=== PATIENT | female | born 1945 | race Caucasian/White ===

== ENCOUNTER 2016-05-13 13:43 | Inpatient (IN) | payer OTHER ==
[2016-05-13] MEDS ORDERED: DUONEB (A & A) INH ONE (15:13)
[2016-05-13] MEDS ORDERED: DUONEB (A & A) INH PRN (15:13)
[2016-05-13] MEDS ORDERED: SOLU-MEDROL IV ONE (15:15)
[2016-05-13] MEDS ORDERED: SODIUM CHLORIDE 0.9% INJ SCH (15:30)
[2016-05-13] MEDS ORDERED: NS 250 ML ONE (15:37)
--- NOTE | 2016-05-13 16:12 | EKG Report ---
Test Performed on : 05/13/2016 4:00:12 PM Test Reason : SOB Blood Pressure : / mmHG Vent. Rate : 087 BPM Atrial Rate : 087 BPM P-R Int : 146 ms QRS Dur : 068 ms QT Int : 358 ms P-R-T Axes : 068 -19 051 degrees QTc Int : 430 ms Normal sinus rhythm. Normal ECG When compared with ECG of 21-APR-2016 01:23, premature supraventricular complexes. are no longer present Confirmed by Paolo ROMANO, John Michelle ([id number]) on 05/13/2016 5:23:46 PM
--- NOTE | 2016-05-13 16:19 | Diag Imaging Result Document ---
PROCEDURE NAME: CHEST-2 VIEWS - 05/13/2016 FRONTAL AND LATERAL CHEST, TWO VIEWS: COMPARISON: 04/21/2016. FINDINGS: The lungs are well expanded. The heart is not enlarged. The vessels are not distended. No pneumonia. No pleural effusions. IMPRESSION: No acute abnormality.
[2016-05-13 16:25] LABS: AGAP 11; ALBUMIN 3.6 g/dL (3.5-5.0); ALKALINE PHOSPHATASE 64 U/L (32-104); BUN 20 mg/dL (8-22); CALCIUM 8.7 mg/dL (8.8-10.2); CHLORIDE 101 mmol/L (98-107); COSMO 275; GOT 15 U/L (10-30); GPT 9 U/L (10-36); POTASSIUM 4.4 mmol/L (3.5-5.1); SODIUM 136 mmol/L (136-145); TCO2 24 mmol/L (25-35); TOTAL BILIRUBIN < 0.10 mg/dL (0.20-1.00); TOTAL PROTEIN 6.7 g/dL (6.3-8.3)
[2016-05-13 16:28] LABS: ALLEN TEST NO; BE -1.7 mmoll (-3.0-3.0); BLOOD TYPE ARTERIAL; DRAW SITE R BRACHIAL; METHB 1.4 % (0.0-1.5); O2(CT) 14.5 mL/dL (15.0-23.0); PCO2(98.6) 42 mmHg (35-45); PO2(98.6) 103 mmHg (60-100); SAMPLE BLOOD; SAO2 97.8 % (95.0-100.0); THB 10.9 g/dL (11.5-17.4); pH(98.6) 7.36 (7.35-7.45)
[2016-05-13 16:29] LABS: MODALITY CANNULA
[2016-05-13] MEDS: PROTONIX IV SCH (16:30)
[2016-05-13 16:35] LABS: BASO% 0.2 % (0.0-0.8); EOS# 0.37 X1000 (0.0-0.7); EOS% 6.5 % (0.0-10.0); HEMATOCRIT 34.5 % (37.0-47.0); HEMOGLOBIN 10.9 g/dL (12.0-16.0); IMM GRAN# 0.02 X1000 (0.0-0.04); IMM GRAN% 0.4 % (0.0-0.5); LYMPH# 1.71 X1000 (1.2-3.4); LYMPH% 30.2 % (20.5-51.1); MANUAL DIFF NEEDED? YES; MCH 34.3 PG (27-31); MCHC 31.6 g/dL (33-37); MCV 108.5 FL (81-99); MONO# 0.44 X1000 (0.11-0.59); MONO% 7.8 % (1.7-9.3); MPV 9.5 FL (7.4-10.4); NEUT% 54.9 % (42.2-75.2); PLT 189 X1000 (130-400); RBC 3.18 XMIL (4.2-5.4)
[2016-05-13] MEDS ORDERED: ROCEPHIN 1 GM/NS 50 ML IV SCH (17:00)
[2016-05-13] MEDS ORDERED: SOLU-MEDROL IV SCH (17:00)
[2016-05-13] MEDS ORDERED: NORCO-7.5 PO ONE (17:01)
[2016-05-13 17:07] LABS: BANDS 2 % (0-1); EOS 4 % (1-10); LYMPHS 34 % (21-51); MONO 8 % (1-9)
[2016-05-13 17:08] LABS: POLYCHROM OCCASIONAL
[2016-05-13 17:09] LABS: STOMATOCYTES OCCASIONAL
[2016-05-13] MEDS: LEVAQUIN 500 MG/D5W 100 ML IV SCH (17:11)
[2016-05-13] MEDS: NS 1,000 ML IV SCH (17:11)
[2016-05-13] MEDS: LOVENOX SUBQ SCH (17:11)
--- NOTE | 2016-05-13 17:40 | HISTORY AND PHYSICAL ---
CHIEF COMPLAINT: Shortness of breath. A 70-year-old white female patient, known case of COPD, on home oxygen and nebulizer treatment not doing well since 1 week. Increasing cough, chest congestion, yellowish expectoration, feverish feeling, increasing shortness of breath, decreased exercise tolerance. The patient was getting short of breath walking across the room. She did have runny nose, stuffy nose, watery eyes. Feeling very weak and tired. The patient was using her nebulizer treatment without significant relief. I evaluated patient in my office. The patient was significantly short of breath in mild respiratory distress. Her blood pressure was elevated. Consideration was COPD exacerbation and I decided to admit the patient for further care. The patient was complaining of generalized body ache, headache, chest soreness when she coughs, poor oral intake, mild nausea but no vomiting. She does have polyuria, polydipsia, stress urinary incontinence. No vaginal discharge, spotting, bleeding. The patient denied any diarrhea, blood or mucus in the stool. Occasional heartburn. No abdominal pain, nausea, vomiting. No typical chest pain, palpitations. No dysphagia or odynophagia. The patient does have back pain. At times, pain in her shoulder. She did notice some rash on her hand. Claims to be under stress, at times, depressed. She ran out of her pain medication. ALLERGY: Rocephin. PAST MEDICAL HISTORY: Significant for COPD, hypertension, gastritis, and reflux disease, situational depression, hyperlipidemia, osteoarthritis, migraine peripheral neuropathy, shoulder pain. PERSONAL HISTORY: Single. The patient is still smoking. Lives by herself. Denied alcohol or substance abuse. Independent in activities of daily living though patient was getting very tired and short of breath. REVIEW OF SYSTEMS: As per HPI. Otherwise unobtainable. FAMILY HISTORY: Significant for mother of arthritis, dementia, gastritis and reflux disease. One brother had brain cancer. Otherwise, unobtainable. HOME MEDICATION: Includes lisinopril, Coreg, nebulizer treatment, Effexor, Advair, [place], Protonix. PHYSICAL EXAMINATION: GENERAL: Elderly white female patient in moderate distress. VITAL SIGNS: Blood pressure 145/87, pulse initially 92. Respiratory rate was 24. Temperature 97.9 degrees. In my office her blood pressure was much higher. SKIN: Senile turgor. The patient does have a psoriatic type rash on the hand and forearm. HEENT: Head atraumatic normocephalic. [place] conjunctivae. Anicteric sclerae. Extraocular muscle movement normal. Fundus cannot be penetrated. Good oral hygiene. No tonsillopharyngeal congestion or exudate. Ears and nose benign. NECK: Supple. No JVD, thyromegaly or lymphadenopathy. CHEST: Bilateral diffuse expiratory wheezing. No rales. No movement of accessory muscle of respiration at rest. CARDIOVASCULAR: S1 and S2 heard. No gallop or thrill. ABDOMEN: Soft, globular. Bowel sounds present. No organomegaly or mass. EXTREMITIES: No cyanosis, clubbing. No acute DVT. [place]P [place]: Alert, awake, able to move all 4 limbs. MUSCULOSKELETAL: Tenderness lumbosacral spine. Movement of left shoulder painful. No acute infective arthritis. Her EKG revealed normal sinus rhythm. No acute ST-T wave changes. LABORATORY DATA: WBC count 5.66, hemoglobin 10.9, hematocrit 34.5, platelet count 189,000. Blood gas pH 7.36, pCO2 42, PO2 was 103. Electrolytes were fairly benign. BUN 20, creatinine 1.3. Chest x-ray, no acute abnormality. No pneumonia or pleural effusion. CONSIDERATION: Acute exacerbation of COPD most likely due to bronchitis. Chronic respiratory failure. Hypertension. Chronic pain. Gastritis and reflux disease. Situational depression. PLAN: Admit the patient. IV antibiotics. I ordered Rocephin and Levaquin. The patient was allergic, we have to stop Rocephin. She did receive very small dose. The patient is already on Solu-Medrol, pulmonary toilet and bronchodilator treatment. DVT and GI prophylaxis. Pain management. Overall plan discussed with the patient and she is in agreement.
[2016-05-13] MEDS: DUONEB (A & A) INH SCH ×2 (19:43→23:45)
[2016-05-13] MEDS: ADVAIR 250/50 DISKUS INH SCH (19:44)
[2016-05-13] MEDS ORDERED: PRINIVIL PO SCH (21:00)
[2016-05-13] MEDS: COREG PO SCH (21:03)
[2016-05-13] MEDS: EFFEXOR PO SCH (21:03)
[2016-05-13] MEDS: SOLU-MEDROL IV SCH (23:36)
[2016-05-13] MEDS: NORCO-7.5 PO PRN (23:39)
[2016-05-14] MEDS: DUONEB (A & A) INH SCH ×5 (03:19→19:18)
[2016-05-14 06:32] LABS: AGAP 12; ALBUMIN 3.5 g/dL (3.5-5.0); ALKALINE PHOSPHATASE 61 U/L (32-104); BUN 18 mg/dL (8-22); CALCIUM 8.4 mg/dL (8.8-10.2); CHLORIDE 102 mmol/L (98-107); COSMO 276; GOT 12 U/L (10-30); GPT 7 U/L (10-36); MAGNESIUM 1.7 mg/dL (1.5-2.7); POTASSIUM 5.3 mmol/L (3.5-5.1); SODIUM 136 mmol/L (136-145); TCO2 22 mmol/L (25-35); TOTAL BILIRUBIN < 0.10 mg/dL (0.20-1.00); TOTAL PROTEIN 6.3 g/dL (6.3-8.3)
[2016-05-14 06:34] LABS: HEMATOCRIT 33.4 % (37.0-47.0); HEMOGLOBIN 10.5 g/dL (12.0-16.0); LYMPH# 0.55 X1000 (1.2-3.4); LYMPH% 16.6 % (20.5-51.1); MANUAL DIFF NEEDED? YES; MCH 33.8 PG (27-31); MCHC 31.4 g/dL (33-37); MCV 107.4 FL (81-99); MONO# 0.02 X1000 (0.11-0.59); MONO% 0.6 % (1.7-9.3); MPV 9.1 FL (7.4-10.4); NEUT% 82.8 % (42.2-75.2); PLT 166 X1000 (130-400); RBC 3.11 XMIL (4.2-5.4)
[2016-05-14] MEDS: NS 1,000 ML IV SCH ×3 (07:11→22:06)
[2016-05-14 07:22] LABS: LYMPHS 16 % (21-51)
[2016-05-14] MEDS: ADVAIR 250/50 DISKUS INH SCH ×2 (07:42→19:18)
[2016-05-14] MEDS: SOLU-MEDROL IV SCH ×2 (08:48→18:07)
[2016-05-14] MEDS: EFFEXOR PO SCH ×2 (08:48→22:01)
[2016-05-14] MEDS: COREG PO SCH ×2 (08:49→22:00)
[2016-05-14] MEDS ORDERED: LASIX IV ONE (09:26)
[2016-05-14] MEDS: NORCO-7.5 PO PRN ×2 (09:56→18:13)
--- NOTE | 2016-05-14 09:56 | PROGRESS NOTE ---
DATE: 05/14/2016 SUBJECTIVE: Ms. Vincent is doing some better. She does have cough, chest congestion, and wheezing, although it is improving. Shortness of breath is minimally less. She denied any nausea or vomiting. Her pain control is better. No typical chest pain. OBJECTIVE: Vital Signs: Noted. Neck: Supple. No JVD. Lungs: Bilateral good air entry present. Bilateral expiratory wheezing. Cardiovascular: S1 and S2 heard. Abdomen: Soft, globular. Bowel sounds present. Extremities: No cyanosis, clubbing. No acute DVT. RECORDS ANALYST: Alert, awake. Able to move all 4 limbs. CONSIDERATION: 1. Acute exacerbation of chronic obstructive pulmonary disease secondary to bronchitis. 2. Hypertension. 3. Osteoarthritis. 4. Situational depression. I am going to decrease her Solu-Medrol. Give her Lasix small dose. Continue IV antibiotics. Pulmonary toilet. GI and DVT prophylaxis. Continue home medicine. Her potassium was minimally elevated. We will continue monitoring. Close observation. Overall plan discussed with the patient. She is in agreement. I offered her short-term rehabilitation. The patient understood the importance, but refused.
[2016-05-14] MEDS: PROTONIX IV SCH (15:01)
[2016-05-14] MEDS: LEVAQUIN 500 MG/D5W 100 ML IV SCH (15:02)
[2016-05-14] MEDS: LOVENOX SUBQ SCH (18:07)
[2016-05-15] MEDS: DUONEB (A & A) INH SCH ×7 (01:14→23:26)
[2016-05-15] MEDS: SOLU-MEDROL IV SCH ×3 (01:28→17:44)
[2016-05-15] MEDS: ADVAIR 250/50 DISKUS INH SCH ×2 (07:33→19:27)
[2016-05-15] MEDS ORDERED: LASIX IV ONE (08:36)
[2016-05-15 08:53] LABS: ALLEN TEST YES; BLOOD TYPE ARTERIAL; DRAW SITE L RADIAL; METHB 0.8 % (0.0-1.5); O2(CT) 13.2 mL/dL (15.0-23.0); PCO2(98.6) 42 mmHg (35-45); PO2(98.6) 83 mmHg (60-100); SAMPLE BLOOD; SAO2 97.8 % (95.0-100.0); THB 9.7 g/dL (11.5-17.4); pH(98.6) 7.29 (7.35-7.45)
[2016-05-15 08:54] LABS: MODALITY CANNULA
[2016-05-15 09:59] LABS: HEMATOCRIT 31.2 % (37.0-47.0); HEMOGLOBIN 9.8 g/dL (12.0-16.0); IMM GRAN# 0.03 X1000 (0.0-0.04); IMM GRAN% 0.5 % (0.0-0.5); LYMPH# 0.61 X1000 (1.2-3.4); LYMPH% 10.5 % (20.5-51.1); MANUAL DIFF NEEDED? YES; MCH 33.7 PG (27-31); MCHC 31.4 g/dL (33-37); MCV 107.2 FL (81-99); MONO# 0.23 X1000 (0.11-0.59); PLT 148 X1000 (130-400); RBC 2.91 XMIL (4.2-5.4)
[2016-05-15 10:05] LABS: AGAP 13; ALBUMIN 3.5 g/dL (3.5-5.0); ALKALINE PHOSPHATASE 53 U/L (32-104); BUN 23 mg/dL (8-22); CHLORIDE 98 mmol/L (98-107); COSMO 271; GOT 12 U/L (10-30); GPT 7 U/L (10-36); MAGNESIUM 1.7 mg/dL (1.5-2.7); POTASSIUM 4.9 mmol/L (3.5-5.1); SODIUM 133 mmol/L (136-145); TCO2 22 mmol/L (25-35); TOTAL BILIRUBIN < 0.10 mg/dL (0.20-1.00); TOTAL PROTEIN 6.1 g/dL (6.3-8.3)
[2016-05-15 10:13] LABS: INR 1.07; PROTIME 11.3 Seconds (9.2-11.7)
[2016-05-15 10:33] LABS: BANDS 4 % (0-1); LYMPHS 10 % (21-51); MONO 2 % (1-9)
--- NOTE | 2016-05-15 10:41 | PROGRESS NOTE ---
DATE: 05/15/2016 SUBJECTIVE: Ms. Vincent is doing fair. The patient was complaining of more shortness of breath and wheezing today. The patient claims she had some sore throat and difficulty swallowing, started yesterday. She denied any nausea or vomiting. No typical chest pain. I noticed a bruise lesly on her right cheek. She denied any trauma. Patient claims she might have laid on her right side. No dysuria or hematuria. The patient does get short of breath with exertion. Patient admitted with COPD exacerbation. PHYSICAL EXAMINATION: Vital Signs: Her vital signs noted. Neck: Supple. No JVD. I did not hear any stridor. HEENT: Patient does have a bruise lesly on the right cheek. Minimal puffiness of the face. CVS: S1 and S2 heard. Abdomen: Soft, globular. Bowel sounds present. Extremities: No cyanosis, clubbing. No acute DVT. MIDDLE SCHOOL COMBINATION TEACHER: Alert, awake. Able to move all 4 limbs. CONSIDERATION: 1. Respiratory distress. 2. Chronic obstructive pulmonary disease exacerbation. I am going to give her some Lasix. Increase her steroid to 60 mg 3 times a day. Repeat chest x-ray, appropriate blood work. I repeated blood gas which did reveal pH of 7.29, pCO2 42, PO2 83. This was done on 2 L. We will continue bronchodilator treatment. I am going to get pulmonary consult. We will also check proBNP and cardiac isoenzymes. 3. Bruise lesly on the right cheek. No other external bleeding. I will get PT and PTT. 4. Her other problems include hypertension, osteoarthritis, gastritis, and reflux disease. 5. The patient is on deep venous thrombosis and gastrointestinal prophylaxis which will continue. PLAN: Overall plan discussed with the patient. She is in agreement.
[2016-05-15] MEDS: COREG PO SCH ×2 (10:56→20:36)
[2016-05-15] MEDS: EFFEXOR PO SCH ×2 (10:57→20:36)
[2016-05-15] MEDS: NS 1,000 ML IV SCH (10:58)
[2016-05-15] MEDS: NORCO-7.5 PO PRN ×2 (11:02→20:36)
--- NOTE | 2016-05-15 11:17 | Diag Imaging Result Document ---
PROCEDURE NAME: CHEST-PORTABLE - 05/15/2016 PORTABLE CHEST: COMPARISON: Compared to 05/13/2016. FINDINGS: The lungs are well expanded. The heart is not enlarged. No consolidation. Mild central vascular prominence. No pleural effusions identified. IMPRESSION: Mild pulmonary edema. Followup PA and lateral recommended.
[2016-05-15] MEDS: LEVAQUIN 500 MG/D5W 100 ML IV SCH (14:40)
[2016-05-15] MEDS: PROTONIX IV SCH (14:41)
--- NOTE | 2016-05-15 17:38 | CONSULTATION ---
DATE OF CONSULTATION: 05/15/2016 REQUESTING PHYSICIAN: Eddie Elise MD. Thank you very much for asking me to see this very pleasant, 70-year-old female, white. DIAGNOSIS: 1. Chronic obstructive pulmonary disease with acute on chronic respiratory failure. 2. Acute exacerbation of chronic bronchitis. 3. History of osteoporosis. 4. Chronic opioid dependency. 5. Dementia. RECOMMENDATIONS: Will give broad-spectrum antibiotics with Levaquin and Rocephin. Will give IV Solu-Medrol for bronchospasm. I believe we should touch her with a single dose or 2 of Lasix to try to volume contracture her as I believe she has some pulmonary edema induced bronchospasm also. Smoking cessation was discussed with her and will follow closely along with you. HISTORY: This very pleasant, but unfortunate, 70-year-old female, white, presents to our hospital with the onset of wheezing and respiratory distress, hypoxemia and desaturations down in to the 70s. She was placed on the floor and given bronchodilators and I am consulted to assist in her care because of increased coughing and congestion and wheezing. She was treated with broad- spectrum antibiotics, bronchodilators, and I am consulted to assist in her care. She was smoking up until approximately 1 week ago. REVIEW OF SYSTEMS: Except for the features mentioned above are negative for weight loss, night sweats, weakness, or anorexia. No ENT symptoms of odynophagia, dysphagia, epistaxis, painful swallowing. No eye symptoms of blindness, blurring, diplopia. No other cardiac or pulmonary symptoms other than as mentioned above. No nausea, vomiting, constipation, diarrhea. No hematuria, polyuria, nocturia, dysuria. No joint or muscle pain, stiffness swelling. No skin rashes, itching, bruises. No seizures, loss of consciousness, or paralysis except for the features mentioned above. All other symptoms on the review of systems are negative. PAST MEDICAL HISTORY: Is positive for COPD, hypertension, osteoporosis, depression, as well as chronic migraines, peripheral neuropathy, chronic shoulder pain, and chronic back pain. SOCIAL HISTORY: She is single. Still smokes. Lives by herself. Has family that checks on her. FAMILY HISTORY: Positive for father who had COPD and lung cancer. Mother had COPD and dementia. PHYSICAL EXAMINATION: General: This is an unfortunate, elderly lady. Vital signs: Blood pressure 132/83, with a pulse of 96, respirations 20, temperature 98.1 degrees. HEENT: Exam reveals no thyromegaly or adenopathy. Pupils are equal and reactive. Extraocular muscles are intact. Neck: Supple. No bruits. No thyromegaly. No JVD. Chest: Reveals bilateral equal breath sounds with some prolongation of the expiratory phase. Forced expiratory wheezes. There are wheezes and rhonchi throughout. The excursions are symmetrical, however. Cardiac: Reveals a regular rhythm without an appreciable murmur, rub, or gallop. Abdomen: Soft. Skin: Warm, dry. Neurological: She is nonfocal. RADIOLOGY: The chest radiograph is hyperinflated with no infiltrates, mass, or effusion. LABORATORY: ABG shows a 7.29 pH with 42 CO2 and 83 O2. White count 5,800 with a hemoglobin 9.8, hematocrit 31.2, platelets 148,000. Sodium 133, potassium 4.9, chloride 98, CO2 22, BUN 23, creatinine 1.3, glucose 108.
[2016-05-15] MEDS: MERREM 1 GM in NS 50 ML IV SCH (17:45)
[2016-05-15] MEDS: LOVENOX SUBQ SCH (17:45)
[2016-05-16] MEDS: MERREM 1 GM in NS 50 ML IV SCH ×3 (01:31→17:21)
[2016-05-16] MEDS: SOLU-MEDROL IV SCH ×3 (01:31→17:22)
[2016-05-16] MEDS: DUONEB (A & A) INH SCH ×5 (03:23→23:26)
[2016-05-16] MEDS ORDERED: LASIX PO ONE (07:03)
--- NOTE | 2016-05-16 07:20 | PROGRESS NOTE ---
DATE: 05/16/2016 SUBJECTIVE: Ms. Vincent is doing better today. Her chest congestion and cough are improving. Her wheezing is less. Shortness of breath is improving. I appreciate Pulmonary's help managing this patient. No nausea or vomiting. OBJECTIVE: Vital Signs: Noted. Lungs: Bilateral expiratory wheezing, though less. Cardiovascular: S1 and S2 heard. Abdomen: Soft, globular. Bowel sounds present. Extremities: No cyanosis, clubbing. No acute DVT. Central Nervous System: Alert, awake, able to move all 4 limbs. CONSIDERATIONS: 1. Chronic obstructive pulmonary disease exacerbation. 2. Chronic respiratory failure. DIAGNOSTIC DATA: Labs and chest x-ray results reviewed. OTHER CONSIDERATIONS: 1. Dementia. 2. Hypertension. 3. Osteoarthritis. PLAN: We will continue the current treatment and close observation.
[2016-05-16] MEDS: ADVAIR 250/50 DISKUS INH SCH ×2 (08:18→19:30)
[2016-05-16] MEDS: COREG PO SCH ×2 (10:19→21:29)
[2016-05-16] MEDS: EFFEXOR PO SCH ×2 (10:19→21:29)
[2016-05-16] MEDS: NORCO-7.5 PO PRN ×2 (10:28→17:38)
[2016-05-16] MEDS: PROTONIX IV SCH (15:45)
[2016-05-16] MEDS: LEVAQUIN 500 MG/D5W 100 ML IV SCH (15:45)
[2016-05-16] MEDS: LOVENOX SUBQ SCH (17:22)
[2016-05-17] MEDS: MERREM 1 GM in NS 50 ML IV SCH ×3 (01:39→17:40)
[2016-05-17] MEDS: SOLU-MEDROL IV SCH ×4 (01:39→23:15)
[2016-05-17] MEDS: DUONEB (A & A) INH SCH ×6 (03:20→22:51)
[2016-05-17 03:48] LABS: ALLEN TEST YES; BE 6.4 mmoll (-3.0-3.0); BLOOD TYPE ARTERIAL; DRAW SITE R BRACHIAL; METHB 1.4 % (0.0-1.5); O2(CT) 12.7 mL/dL (15.0-23.0); PO2(98.6) 87 mmHg (60-100); SAMPLE BLOOD; SAO2 96.3 % (95.0-100.0); THB 9.4 g/dL (11.5-17.4)
[2016-05-17 03:50] LABS: MODALITY CANNULA
[2016-05-17 03:52] LABS: PCO2(98.6) 52 mmHg (35-45)
[2016-05-17] MEDS: COREG PO SCH ×2 (06:25→20:25)
[2016-05-17 06:33] LABS: MANUAL DIFF NEEDED? NO
[2016-05-17 06:36] LABS: HEMATOCRIT 33.4 % (37.0-47.0); HEMOGLOBIN 10.9 g/dL (12.0-16.0); IMM GRAN# 0.03 X1000 (0.0-0.04); IMM GRAN% 0.7 % (0.0-0.5); LYMPH# 0.53 X1000 (1.2-3.4); LYMPH% 13.2 % (20.5-51.1); MCH 33.9 PG (27-31); MCHC 32.6 g/dL (33-37); MCV 103.7 FL (81-99); MONO# 0.15 X1000 (0.11-0.59); MONO% 3.7 % (1.7-9.3); MPV 9.8 FL (7.4-10.4); NEUT% 82.4 % (42.2-75.2); PLT 136 X1000 (130-400); RBC 3.22 XMIL (4.2-5.4)
[2016-05-17 07:19] LABS: ALBUMIN 3.5 g/dL (3.5-5.0); MAGNESIUM 1.8 mg/dL (1.5-2.7); POTASSIUM 4.4 mmol/L (3.5-5.1); TOTAL BILIRUBIN 0.11 mg/dL (0.20-1.00)
[2016-05-17] MEDS: ADVAIR 250/50 DISKUS INH SCH ×2 (07:39→19:23)
--- NOTE | 2016-05-17 07:54 | PROGRESS NOTE ---
DATE: 05/17/2016 SUBJECTIVE: Ms. Vincent is feeling better. Her shortness of breath is improving. Cough and chest congestion is less. No high-grade fever or chills. The patient is ambulating better. No nausea or vomiting. OBJECTIVE: Vital Signs: Her vital signs noted. Blood pressure is high. Neck: Supple. No JVD. Lungs: Bilateral occasional wheezing. CVS: S1 and S2 heard. Abdomen: Soft, globular. Bowel sounds present. TOOL AND DIE MACHINIST: Alert, awake. Able to move all 4 limbs. No acute DVT clinically. CONSIDERATIONS: 1. Chronic obstructive pulmonary disease exacerbation. 2. Chronic respiratory failure. 3. Hypertension. PLAN: Appreciate Pulmonary help managing this patient. Her a.m. blood work is pending. We will continue current treatment. Close observation. I am going to decrease her steroid to 40 mg. Continue rest of the medicine. If clinical condition permits, will plan discharging patient home soon. I will follow her a.m. blood work.
[2016-05-17] MEDS ORDERED: LASIX IV ONE (08:19)
[2016-05-17] MEDS ORDERED: PRINIVIL PO SCH (09:00)
[2016-05-17] MEDS: EFFEXOR PO SCH ×2 (09:21→20:23)
[2016-05-17] MEDS: NORCO-7.5 PO PRN ×2 (09:26→20:25)
[2016-05-17] MEDS: LOVENOX SUBQ SCH ×2 (14:22→16:09)
[2016-05-17] MEDS: LEVAQUIN 500 MG/D5W 100 ML IV SCH ×2 (14:22→15:53)
[2016-05-17] MEDS: PROTONIX IV SCH ×2 (14:22→15:53)
[2016-05-18] MEDS: MERREM 1 GM in NS 50 ML IV SCH ×3 (01:37→16:27)
[2016-05-18] MEDS: DUONEB (A & A) INH SCH ×6 (02:59→23:33)
[2016-05-18] MEDS: SOLU-MEDROL IV SCH (05:50)
[2016-05-18] MEDS: PRILOSEC PO SCH ×3 (05:50→06:50)
--- NOTE | 2016-05-18 06:54 | PROGRESS NOTE ---
DATE: 05/18/2016 SUBJECTIVE: Ms. Vincent indicates is feeling better. Shortness of breath and wheezing improving. No chest pain. Mild cough. The patient is ambulating better. Her blood pressure is staying high. Oral intake improving. OBJECTIVE: Vital Signs: Vital signs noted. Neck: Supple. No JVD. Lungs: Bilateral good air entry present. Occasional wheezing. CVS: S1 and S2 heard. Abdomen: Soft, globular. Bowel sounds present. GARMENT FOLDER: Alert, awake. Able to move all 4 limbs. Extremities: No acute DVT clinically. Laboratory Data: The patient's blood gas done yesterday reviewed. Electrolytes noted. Creatinine yesterday was 1.4, BUN 34. I am going to change her Levaquin to 250 mg, continue Invanz. CONSIDERATIONS: 1. Chronic obstructive pulmonary disease exacerbation, most likely due to bronchitis. 2. Hypertension. I am going to increase lisinopril to twice a day. 3. Chronic pain. 4. Gastritis. 5. Situational depression. PLAN: I offered patient to go to rehab for short-term rehab. The patient refused. Overall plan discussed with the patient. She is in agreement. If clinical condition permits, we will plan discharging the patient home tomorrow.
[2016-05-18] MEDS: ADVAIR 250/50 DISKUS INH SCH ×2 (07:46→23:18)
--- NOTE | 2016-05-18 09:25 | Diag Imaging Result Document ---
PROCEDURE NAME: CHEST-2 VIEWS - 05/18/2016 PA AND LATERAL RADIOGRAPH OF THE CHEST: COMPARISON: 05/15/2016. FINDINGS: The mild pulmonary edema and mild pulmonary venous congestion has essentially resolved. The lungs are grossly clear. No new consolidations are identified. Cardiac silhouette is stable. IMPRESSION: Essential resolution of the mild interstitial edema and pulmonary venous congestion seen previously.
[2016-05-18] MEDS: COREG PO SCH ×2 (09:43→19:59)
[2016-05-18] MEDS: NORCO-7.5 PO PRN ×2 (09:43→19:55)
[2016-05-18] MEDS: LEVAQUIN PO SCH (09:43)
[2016-05-18] MEDS: EFFEXOR PO SCH ×2 (09:43→19:59)
[2016-05-18] MEDS: PRINIVIL PO SCH ×2 (09:43→19:59)
[2016-05-18] MEDS: PREDNISONE PO SCH (12:11)
[2016-05-18] MEDS: LOVENOX SUBQ SCH (16:27)
[2016-05-19] MEDS: MERREM 1 GM in NS 50 ML IV SCH ×2 (01:22→08:29)
[2016-05-19] MEDS: DUONEB (A & A) INH SCH ×2 (03:25→08:09)
[2016-05-19 04:53] VITALS: BP 172/90
[2016-05-19] MEDS: PRILOSEC PO SCH (06:02)
[2016-05-19] MEDS: ADVAIR 250/50 DISKUS INH SCH (08:09)
[2016-05-19] MEDS: NORCO-7.5 PO PRN (08:27)
[2016-05-19] MEDS: PREDNISONE PO SCH (08:27)
[2016-05-19] MEDS: PRINIVIL PO SCH (08:28)
[2016-05-19] MEDS: LEVAQUIN PO SCH (08:28)
[2016-05-19] MEDS: EFFEXOR PO SCH (08:29)
[2016-05-19] MEDS: COREG PO SCH (08:29)
--- NOTE | 2016-05-19 09:05 | DISCHARGE SUMMARY ---
ADMISSION DATE: 05/13/2016 DISCHARGE DATE: FINAL DISCHARGE DIAGNOSES: 1. Acute exacerbation of chronic obstructive pulmonary disease, secondary to bronchitis. 2. Chronic respiratory failure. 3. Hypertension. 4. Hyperlipidemia. 5. Gastritis. 6. Chronic pain syndrome. 7. Hypertension. 8. Hyperlipidemia. 9. Gastritis. 10. Chronic pain syndrome. 11. Situational depression. Ms. Vincent is a 70-year-old white female patient, admitted with chest congestion, cough, wheezing, increasing shortness of breath, decreased exercise tolerance, not responding to her home oxygen and nebulizer treatment. The patient was getting more short of breath. I evaluated patient in the office and admitted her for further care. HOSPITAL COURSE: Patient was treated with IV antibiotics, IV steroid, pulmonary toilet, bronchodilator care. Her clinical condition gradually improved. The patient had episode of fluid overload, treated with IV Lasix. Pulmonary consult obtained with Dr. Banks and then Dr. Mullen followed the patient. Overall, the patient is doing better. Her shortness of breath improved. She is ambulating well. Oral intake improved. PHYSICAL EXAMINATION: Vital Signs: Vital signs noted. Neck: Supple. No jugular venous distention. HEENT: The patient does have bruise lesly on the right cheek. Cardiovascular: S1 and S2 heard. Abdomen: Soft, globular. Bowel sounds present. RECREATION INSTRUCTOR: Alert, awake, able to move all 4 limbs. I am planning to discharge patient home today. I offered her short-term rehab. The patient refused. Offered her home health. The patient refused. LAB DATA: Revealed blood gas pH 7.4. Last pCO2 52, PO2 was 57. This was done on 2 L via nasal cannula. Electrolytes done on May 17 were sodium 133, potassium 4.4, chloride 92. BUN 34, creatinine 1.4. Magnesium 1.8. ProBNP 1910. PT/INR 1.07. Her last hemoglobin was 10.9, hematocrit 33.4. WBC count 4.01. Platelet count was 136,000. Chest x-ray done yesterday essential resolution of the mild interstitial edema and pulmonary venous congestion. Overall, the patient received maximum benefit of hospitalization and I am planning to discharge patient home today. Follow up with me in 1 week. Follow up with components engineer as scheduled. Fall precaution. Smoking cessation. Discharge medications discussed at length with the patient and she is in agreement.
== END 2016-05-19 10:26 | disposition home or self-care (01) | DRG 191 ==
LOC: DIRADM 13:43 → 3N 14:17
PROVIDERS: ADMIT Internal Medicine; ATTEND Internal Medicine
DX: J44.1 Chronic obstructive pulmonary disease with (acute) exacerbation (principal); J96.10 Chronic respiratory failure, unspecified whether with hypoxia or hypercapnia; F03.90 Unspecified dementia, unspecified severity, without behavioral disturbance, psychotic disturbance, mood disturbance, and anxiety; G62.9 Polyneuropathy, unspecified; I10 Essential (primary) hypertension; E78.5 Hyperlipidemia, unspecified; K29.70 Gastritis, unspecified, without bleeding; K21.9 Gastro-esophageal reflux disease without esophagitis; S00.83XA Contusion of other part of head, initial encounter; M19.90 Unspecified osteoarthritis, unspecified site; G89.29 Other chronic pain; F43.21 Adjustment disorder with depressed mood; F17.210 Nicotine dependence, cigarettes, uncomplicated; Z79.899 Other long term (current) drug therapy; Z80.1 Family history of malignant neoplasm of trachea, bronchus and lung; X58.XXXA Exposure to other specified factors, initial encounter
CPT/HCPCS: 71010; 71020; 80053; 82550; 82805; 83735; 83880; 84484; 85025; 85610; 87070; 87077; 87186; 87205; 93005; 93010; 94640; 94761; C9113; J0696; J1650; J1940; J2185; J2920; J2930; J7030; J7050; J7512; S0164

== ENCOUNTER 2016-11-02 14:02 | Inpatient (IN) ==
[2016-11-02] MEDS ORDERED: DUONEB (A & A) INH ONE (15:21)
[2016-11-02] MEDS ORDERED: SOLU-MEDROL IV ONE (15:21)
[2016-11-02 15:37] LABS: BASO% 0.2 % (0.0-0.8); EOS# 0.29 X1000 (0.0-0.7); EOS% 2.8 % (0.0-10.0); HEMATOCRIT 36.8 % (37.0-47.0); HEMOGLOBIN 11.7 g/dL (12.0-16.0); LYMPH# 1.29 X1000 (1.2-3.4); LYMPH% 12.4 % (20.5-51.1); MANUAL DIFF NEEDED? NO; MCH 31.5 PG (27-31); MCHC 31.8 g/dL (33-37); MCV 98.9 FL (81-99); MONO% 7.7 % (1.7-9.3); MPV 10.1 FL (7.4-10.4); NEUT% 76.9 % (42.2-75.2); PLT 202 X1000 (130-400); RBC 3.72 XMIL (4.2-5.4)
--- NOTE | 2016-11-02 15:49 | Diag Imaging Result Doc PS360 ---
EXAM: CHEST-2 VIEWS HISTORY: CP TECHNIQUE: AP and lateral chest COMMENT: There is no evidence of acute cardiac or pulmonary disease. Compared to 05/18/2016 there has been no significant change considering differences in technique and inspiration. IMPRESSION: No acute disease. Electronically signed by Nelson Linder 11/02/2016 3:47 PM
[2016-11-02 16:03] LABS: ALBUMIN 4.5 g/dL (3.5-5.0); CALCIUM 9.3 mg/dL (8.8-10.2); TOTAL BILIRUBIN 0.28 mg/dL (0.20-1.00); TOTAL PROTEIN 7.2 g/dL (6.3-8.3)
[2016-11-02 16:27] LABS: PROTIME 10.5 Seconds (9.2-11.7); PTT 29.4 Seconds (22.0-36.0)
[2016-11-02 16:44] LABS: ALLEN TEST YES; BE 3.4 mmoll (-3.0-3.0); BLOOD TYPE ARTERIAL; DRAW SITE R RADIAL; METHB 1.1 % (0.0-1.5); O2(CT) 15.3 mL/dL (15.0-23.0); PO2(98.6) 97 mmHg (60-100); SAMPLE BLOOD; SAO2 98.1 % (95.0-100.0); THB 11.3 g/dL (11.5-17.4); pH(98.6) 7.37 (7.35-7.45)
[2016-11-02 16:46] LABS: MODALITY CANNULA; PCO2(98.6) 51 mmHg (35-45)
--- NOTE | 2016-11-02 17:39 | PROVIDER DOCUMENTATION ---
This chart was entered by Kristin Muñoz Scribe, acting as scribe for Girma Bashir MD. HPI-Respiratory General - General Chief Complaint: Shortness of Breath Stated Complaint: sob x 1 week Time Seen by Provider: 11/02/16 15:05 Source: patient Allergies/Adverse Reactions: Patient Allergies Allergy/AdvReac Type Severity Reaction Status Date / Time ceftriaxone sodium * Allergy Severe ANAPHYLAXIS Verified 11/02/16 15:12 [From Rocephin] Home Medications: Home Medication List Medication Instructions Recorded Confirmed Last Taken Type Venlafaxine [Effexor] 75 mg PO BID 03/31/12 07/01/16 06/30/16 History Albuterol [Albuterol Neb] 2.5 mg INH [id number] 10/07/13 07/01/16 04/21/16 History Fluticasone/Salmet 250/50 INH 1 puff INH BID 04/21/16 07/01/16 06/30/16 History [Advair 250/50 Diskus] LISINOpril [Prinivil] 5 mg PO BID 04/21/16 07/01/16 06/30/16 History Albuterol 2.5MG/Ipratrop 0.5MG 3 ml INH RTQ4H #0 neb 05/19/16 07/01/16 Unknown Rx [Duoneb (A & A)] Carvedilol [Coreg] 12.5 mg PO Q12H #0 tablet 05/19/16 07/01/16 06/30/16 Rx Omeprazole [Prilosec] 40 mg PO DAILY #30 05/19/16 07/01/16 06/30/16 Rx Esomeprazole [Nexium] 40 mg PO DAILY 07/01/16 07/01/16 06/30/16 History Montelukast Sodium [Singulair] 10 mg PO DAILY 07/01/16 07/01/16 06/30/16 History - History of Present Illness-Resp Nature of Presenting Problem: 71 year-old female with history of COPD, CHF, CAD and HTN presents to the ER with shortness of breath and a moderate non-productive cough. Her cough has been present for the past week. She denies any production. She is on home oxygen and uses nebulizer treatments. She denies any chest pain, lower extremity edema, fever, chills, or any other symptoms. She has no history of NC , TIA, or CVA. No other symptoms are presented at this time. Quality of Pain: reports: none Severity in ED: reports: moderate Onset/Duration: reports: gradual, 1 week ago Timing: reports: still present, getting worse Context: denies: recent foreign travel, multiple patients with similar complaints, recent URI, out of meds Exposure: reports: other (Chronic COPD) Cough Quality/Degree: reports: moderate, dry cough Episode Frequency: chronic episodes Current Respiratory Medication Therapy: Initiated albuterol/atrovent inhale, Initiated other (Oxygen at home.) Modifying Factors: improves with: exertion (worsens), coughing Associated Symptoms: reports: cough, shortness of breath, wheezing. denies: chest pain/soreness, dizziness, facial pain, fever/chills, headache, hurts to breathe Similar Symptoms Previously?: Yes Recently seen or treated by another doctor?: No Review of Systems - Adult - REVIEW OF SYSTEMS - ADULT Constitutional: reports: no symptoms reported, see HPI. denies: chills, fever Eyes: reports: no symptoms reported, see HPI. denies: discharge, redness Ears, Nose, Mouth & Throat: reports: no symptoms reported, see HPI. denies: ear pain, sinus problem, hoarseness, throat pain Cardiovascular: reports: no symptoms reported, see HPI. denies: chest pain, edema, palpitations, syncope Respiratory: reports: see HPI, cough, dyspnea on exertion, shortness of breath. denies: excessive sputum production, hemoptysis Gastrointestinal: reports: no symptoms reported, see HPI. denies: abdominal pain, constipation, diarrhea, nausea, vomiting Genitourinary: denies: no symptoms reported, see HPI, dysuria, discharge, urinary retention, urgency Musculoskeletal: reports: no symptoms reported, see HPI. denies: back pain, muscle weakness Integumentary: reports: no symptoms reported, see HPI. denies: hives, rash Neurological: reports: no symptoms reported, see HPI. denies: dizziness/vertigo , syncope Psychiatric: reports: no symptoms reported, see HPI. denies: anxiety Endocrine: reports: no symptoms reported, see HPI Hematologic/Lymphatic: reports: no symptoms reported, see HPI. denies: easy bruising Allergic/Immunologic: reports: no symptoms reported, see HPI All Other Systems: Reviewed and Negative Past History - Adult - PAST MEDICAL HISTORY-ADULT Review of Records: reports: Old Records Reviewed, Nursing Assessment Review, Medications Reviewed, Social history reviewed & non-contributory. Major Childhood Illnesses: reports: denies history Cardiovascular: reports: CAD, CHF, HTN Respiratory: reports: COPD Gastrointestinal: reports: GERD Musculoskeletal: reports: chronic pain (Back) Neurological: denies: CVA, TIA Psychiatric: reports: depression Other Conditions: reports: other - PRIOR SURGERIES/PROCEDURES Surgical/Procedure History: reports: - IMMUNIZATION STATUS Childhood Immunizations: See Nurse Assessment Flu Vaccine: See Nurse Assessment - SOCIAL HISTORY Smoking: quit less than 1 year (Quit on 05/31/16) Substance Use: none/never Alcohol Use Frequency: never Physical Exam-General - PHYSICAL EXAM-ADULT Initial Vital Signs Reviewed: Yes - CONSTITUTIONAL General Appearance: alert, no apparent distress. negative: lethargic, obtunded - EYES Eyes: PERRL/EOMI. negative: pink conjunctivae, sclera injected, scleral icterus , subconjunctival hemorrhage, sunken eyes - HEAD, EARS, NOSE, MOUTH & THROAT HENMT: normocephalic/atraumatic, moist mucous membranes, normal ENT inspection. negative: pharynx normal, dental decay, pharyngeal erythema - NECK Neck: non-tender, full range of motion, supple, normal inspection - RESPIRATORY Respiratory: chest non-tender, no pleuratic chest pain, rhonchi (Worse on the right than the left.), wheezing (Throuhgout lung vasquez.) - CARDIOVASCULAR Cardiovascular: negative: no edema, no murmur (Harsh sounding murmur on the left.), bradycardia, tachycardia - GASTROINTESTINAL (ABDOMEN) Abdominal Exam: normal bowel sounds, non tender, soft, no organomegaly. negative: abnormal bowel sounds, distended, guarding, rebound, tenderness - LYMPHATIC Lymphatic: no adenopathy - MUSCULOSKELETAL Back Exam: normal inspection, no CVA tenderness, no vertebral tenderness. negative: CVA tenderness, swelling Extremity: normal range of motion, non-tender. negative: no pedal edema, no calf tenderness, pedal edema, swelling, tenderness - SKIN Integumentary: normal color, normal turgor, warm/dry. negative: abrasion(s), diaphoresis - NEUROLOGIC Neurologic: camp assistant II-XII nml as tested, grossly normal, no motor/sensory deficits - PSYCHIATRIC Psych/Mental Status: normal mood/affect, normal thought content, normal thought process, oriented x 3 Progress - PLAN OF CARE/RESULTS Progress/Plan/Lab Results: Vital Signs - 8 hr 11/02/16 14:35 11/02/16 15:52 11/02/16 16:10 Temperature 98.8 F Pulse Rate 89 91 H 87 Respiratory Rate 28 H 31 H 18 Blood Pressure 142/103 142/103 O2 Sat by Pulse Oximetry 96 96 98 11/02/16 16:19 Temperature Pulse Rate 93 H Respiratory Rate 25 H Blood Pressure 142/103 O2 Sat by Pulse Oximetry 99 Laboratory Results - last 24 hr 11/02/16 11/02/16 11/02/16 14:27 14:27 14:27 WBC 10.38 RBC 3.72 L Hgb 11.7 L Hct 36.8 L MCV 98.9 MCH 31.5 H MCHC 31.8 L RDW Std Deviation 13.9 Plt Count 202 MPV 10.1 Immature Gran % (Auto) 0.0 Neut % (Auto) 76.9 H Lymph % (Auto) 12.4 L [place] % (Auto) 7.7 Eos % (Auto) 2.8 Baso % (Auto) 0.2 Immature Gran # (Auto) 0.00 Neut # (Auto) 7.98 H Lymph # (Auto) 1.29 [place] # (Auto) 0.80 H Eos # (Auto) 0.29 Baso # (Auto) 0.02 PT INR PTT (Actin FS) Specimen Type Sample Site pH pCO2 pO2 HCO3 Base Excess Oxyhemoglobin ABG O2 Sat (Calculated) ABG O2 Saturation ABG Carboxyhemoglobin ABG Methemoglobin John Test A-a O2 Difference Total Hemoglobin Lactate Liter Flow Blood Gas Modality FiO2 % Sodium 139 Potassium 5.0 Chloride 96 L Carbon Dioxide 28 Anion Gap 15 BUN 15 Creatinine 1.3 H Estimated GFR/1.73 m2 40 BUN/Creatinine Ratio 12 Glucose 99 Calculated Osmolality 278 Calcium 9.3 Magnesium 2.0 Total Bilirubin 0.28 AST 10 ALT 5 L Alkaline Phosphatase 99 Creatine Kinase 33 Troponin T Dyk-[id number]-Ijeuqchrobd Pept 616 H Total Protein 7.2 Albumin 4.5 Globulin 2.7 Albumin/Globulin Ratio 1.7 11/02/16 11/02/16 11/02/16 14:27 14:27 16:29 WBC RBC Hgb Hct MCV MCH MCHC RDW Std Deviation Plt Count MPV Immature Gran % (Auto) Neut % (Auto) Lymph % (Auto) [place] % (Auto) Eos % (Auto) Baso % (Auto) Immature Gran # (Auto) Neut # (Auto) Lymph # (Auto) [place] # (Auto) Eos # (Auto) Baso # (Auto) PT 10.5 INR 1.00 PTT (Actin FS) 29.4 Specimen Type ARTERIAL Sample Site R RADIAL pH 7.37 pCO2 51 H* pO2 97 HCO3 27.5 H Base Excess 3.4 H Oxyhemoglobin 95.2 ABG O2 Sat (Calculated) 15.3 ABG O2 Saturation 98.1 ABG Carboxyhemoglobin 1.90 ABG Methemoglobin 1.1 John Test YES A-a O2 Difference 124.0 Total Hemoglobin 11.3 L Lactate 0.40 L Liter Flow 5.0 Blood Gas Modality CANNULA FiO2 % 40.0 Sodium Potassium Chloride Carbon Dioxide Anion Gap BUN Creatinine Estimated GFR/1.73 m2 BUN/Creatinine Ratio Glucose Calculated Osmolality Calcium Magnesium Total Bilirubin AST ALT Alkaline Phosphatase Creatine Kinase Troponin T < 0.010 Gbz-C-Xkzhcncpcvl Pept Total Protein Albumin Globulin Albumin/Globulin Ratio Orders Category Date Time Status Cardiac Monitoring DIRECTED Care 11/02/16 15:22 Active Saline Loc NOW Care 11/02/16 15:22 Active CHEST-2 VIEWS [RAD] Stat Exams 11/02/16 15:22 Completed ABG [RESP] Routine Lab 11/02/16 16:29 Completed CBC WITH ELECTRONIC DIFF [HEME] Stat Lab 11/02/16 14:27 Completed CK PROFILE [SP CHEM] Stat Lab 11/02/16 14:27 Completed COMPREHENSIVE METABOLIC PANEL [CHEM] Stat Lab 11/02/16 14:27 Completed MAGNESIUM [CHEM] Stat Lab 11/02/16 14:27 Completed PRO B-NATRIURETIC PEPTIDE Stat Lab 11/02/16 14:27 Completed PROTIME WITH INR [COAG] Stat Lab 11/02/16 14:27 Completed PTT [COAG] Stat Lab 11/02/16 14:27 Completed TROPONIN T Stat Lab 11/02/16 14:27 Completed Albuterol 2.5MG/Ipratrop 0.5MG [Duoneb (A & A)] Med 11/02/16 15:21 Discontinued 9 ml INH NOW ONE Methylprednisolone Sod Succ [Solu-Medrol] Med 11/02/16 15:21 Discontinued 125 mg IV NOW ONE Aerosol Treatments Routine Oth 11/02/16 15:23 Completed Aerosol Treatments Stat Oth 11/02/16 15:23 Completed EKG [EKG] Stat Ther 11/02/16 15:22 Ordered Transfer/Admit Order [TRANSFER] Routine Transfer 11/02/16 16:58 Ordered Result Diagrams: 11/02/16 14:27 11/02/16 14:27 - REASSESSMENT Reassessment #1 Time Reassessed: 16:37 Status: unchanged Reassessment Comment: Patient continues to have wheezing throughout lung vasquez. - EKG 1 Time of EKG reading by physician:: 15:07 EKG Read and Signed by:: Yessenia Bashir EKG Interpretation (*Must complete 3 of following elements*): Normal Rate: 91 [place]: normal (PRT axis 71 -15 59.) QRS: normal (QRS duration 68 ms.) NM Interval: normal (NM interval 146 ms.) Comments: Sinus rhythm with premature atrial complexes. Otherwise normal EKG. - XRAY 1 XRAY Study: Chest Impression: Normal Comparison with other Films: no changes (05/18/16) XRAY Interpretation: No acute disease. - CONSULTS/PCP/HOSPITALIST Notification #1 *Consult/PCP/Hospitalist*: Discussed patient with Dr. Elise, who sent patient to ER to be evaluated Time Discussed: 16:30 #2 Consult: Dr. Elise would like patient admitted and orders put in for her care. Time Discussed: 16:55 Consult Disposition: Admit Departure - Departure Date of Disposition Decision: 11/02/16 Time of Disposition Decision: 16:55 DIAGNOSIS: COPD exacerbation Disposition: ADMITTED INPATIENT 09 Certified Medical Emergency: Emergent Condition: Stable Referrals and Follow-Ups: Eddie Elise MD [Primary Care Provider] - - Critical Care Note This patient required my direct & personal management of CC.: Yes Total Time (mins): 35 Critical Care Statement: This patient required my direct personal management to treat or rule out processes, the absence of which, could potentiallly result in sudden, clinically significant life or limb threatening deterioration. Comments: Continuous treatment in ER. Attestation - Physician/ [place] Attestation Patient care was provided by Advanced Practice Provider:: No The physician spent face to face time with patient:: Yes Advanced Practice Provider documentation review:: Supervising physician onsite and consulted in the evaluation and care of this patient. The physician did have a face to face encounter with the patient. This chart was documented by the indicated scribe, (Kristin Muñoz Scribe) and accurately reflects the services I performed and decisions made by me, Yessenia Bashir MD, as attested by the provider's signature.
--- NOTE | 2016-11-02 20:09 | HISTORY AND PHYSICAL ---
CHIEF COMPLAINT: Shortness of breath. HISTORY OF PRESENT ILLNESS: A 71-year-old white female patient, known case of COPD, chronic respiratory failure, not doing well last 5-6 days. Patient had cough chest congestion, increasing shortness of breath. Decreased exercise tolerance. The patient was using her nebulizer treatment without significant relief. The patient claims she did have cough with scanty sputum production, low-grade fever. Chest soreness when she coughs. The patient was getting more short of breath. She was using her oxygen. The patient came to the emergency room. Evaluated by ER physician. Patient found to be having COPD exacerbation. She was requiring more oxygen. Her blood gas did reveal pCO2 of 51. The patient was given steroid breathing treatment in the emergency room. After treatment, the patient still had diffuse bilateral wheezing. ER physician decided to admit the patient for further care. At that time, she was using her accessory muscles of respiration. Patient claims her oral intake was poor. She was feeling weak. The patient does have a dull headache. Some runny nose, stuffy nose, scratchy throat, cough with expectoration. She denied any typical chest pain. She did have some palpitations, mild epigastric discomfort. No nausea or vomiting. She denied any diarrhea, blood or mucus in the stool. No dysuria or hematuria. At times, odor to her urine. No diarrhea, blood or mucus in the stool. The patient does have chronic low back pain. She is being followed up by a regional transportation manager. The patient is on pain medication. The patient does have depression, on Effexor. Claims compliant. Claims to be under stress. No suicidal or homicidal ideation. No leg swelling. No heat or cold intolerance. Denied polyuria, polydipsia. PAST MEDICAL HISTORY: Significant for COPD, hypertension, chronic kidney disease. Low back pain. Gastritis and reflux disease. Fibromyalgia. Hyperlipidemia. Depression. Migraine. Peripheral neuropathy. PERSONAL HISTORY: Single. Patient does smoke. Denied alcohol or substance abuse. Needs minimal assistance in activities of daily living. REVIEW OF SYSTEMS: As per HPI. Otherwise unobtainable. FAMILY HISTORY: Mother of dementia. She had NIDDM. Gastritis and reflux disease. Hypertension. One brother had brain cancer. ALLERGIES: Rocephin. HOME MEDICATION: Nebulizer treatment. Effexor. Prilosec. Coreg. Lisinopril. Singulair. Dunnegan. PHYSICAL EXAMINATION: GENERAL: Elderly white female patient in mild distress. VITAL SIGNS: On admission, blood pressure 142/103, pulse 89, respirations 28, temperature 98.8 degrees. SKIN: Senile turgor. No rash or petechiae. HEAD: Atraumatic, normocephalic. Darwin conjunctivae. Anicteric sclerae. Extraocular muscle movement normal. Fundus cannot be penetrated. Good oral hygiene. No tonsillopharyngeal congestion or exudate. Ears and nose benign. NECK: Supple. No JVD, thyromegaly or lymphadenopathy. CHEST: Bilateral good air entry present. Bilateral occasional wheezing. No rales. A few basal crepitations. CARDIOVASCULAR: S1 and S2 heard. No gallop or thrill. ABDOMEN: Soft, globular. Mild epigastric tenderness. No guarding or rigidity. EXTREMITIES: No cyanosis, clubbing. No acute DVT. STUNNER ANIMAL: Alert, awake. Able to move all 4 limbs. LABORATORY DATA/IMAGING: Revealed WBC count 10.38, hemoglobin 11.7, hematocrit 36.8, platelet count 202,000. PT and PTT were normal. Blood gas, pH 7.37, pCO2 51, PO2 was 97. This was done on FiO2 of 40%. BUN 15, creatinine 1.3, proBNP was 616, chest x-ray did not reveal any acute disease. CONSIDERATION: Acute exacerbation of chronic obstructive pulmonary disease, most likely due to bronchitis. Hypertension. Gastritis and reflux disease. Chronic low back pain. Depression. Fibromyalgia. Chronic kidney disease. PLAN: I will admit patient. IV steroid. Bronchodilator treatment. Close observation. Continue home medicine. Encouraged smoking cessation. Overall plan discussed with the patient. She is in agreement. cc: Eddie Elise MD
[2016-11-02] MEDS ORDERED: ZOFRAN IV PRN (20:16)
[2016-11-02] MEDS: DUONEB (A & A) INH SCH ×2 (20:25→23:29)
[2016-11-02] MEDS: COREG PO SCH (21:35)
[2016-11-02] MEDS: LOVENOX SUBQ SCH (21:36)
[2016-11-02] MEDS: LEVAQUIN 500 MG/D5W 500 MG/100 ML IVPB IV SCH (21:36)
[2016-11-02] MEDS: SOLU-MEDROL IV SCH (21:36)
[2016-11-02] MEDS: PRINIVIL PO SCH (21:37)
[2016-11-02] MEDS: EFFEXOR PO SCH (21:37)
[2016-11-02] MEDS: TYLENOL PO PRN (21:38)
[2016-11-03] MEDS: DUONEB (A & A) INH SCH ×8 (02:49→22:51)
[2016-11-03] MEDS: TYLENOL PO PRN (05:47)
--- NOTE | 2016-11-03 06:29 | EKG Report ---
Test Performed on : 11/02/2016 3:07:13 PM Test Reason : Chest Pain Blood Pressure : / mmHG Vent. Rate : 091 BPM Atrial Rate : 091 BPM P-R Int : 146 ms QRS Dur : 068 ms QT Int : 370 ms P-R-T Axes : 071 -15 059 degrees QTc Int : 455 ms Sinus rhythm. with premature atrial complexes. Otherwise normal ECG When compared with ECG of 13-MAY-2016 16:00, premature atrial complexes. are now present Unconfirmed Result
[2016-11-03] MEDS: PRILOSEC PO SCH (06:30)
[2016-11-03 06:39] LABS: HEMATOCRIT 35.2 % (37.0-47.0); HEMOGLOBIN 11.2 g/dL (12.0-16.0); LYMPH# 0.68 X1000 (1.2-3.4); LYMPH% 10.9 % (20.5-51.1); MANUAL DIFF NEEDED? YES; MCH 31.4 PG (27-31); MCHC 31.8 g/dL (33-37); MCV 98.6 FL (81-99); MONO# 0.05 X1000 (0.11-0.59); MONO% 0.8 % (1.7-9.3); MPV 9.5 FL (7.4-10.4); NEUT% 88.3 % (42.2-75.2); PLT 176 X1000 (130-400); RBC 3.57 XMIL (4.2-5.4)
[2016-11-03 06:54] LABS: LYMPHS 12 % (21-51)
[2016-11-03 06:59] LABS: AGAP 17; ALBUMIN 3.8 g/dL (3.5-5.0); ALKALINE PHOSPHATASE 92 U/L (32-104); BUN 19 mg/dL (8-22); CALCIUM 9.5 mg/dL (8.8-10.2); CHLORIDE 93 mmol/L (98-107); COSMO 274; GOT 9 U/L (10-30); GPT < 5 U/L (10-36); MAGNESIUM 1.9 mg/dL (1.5-2.7); SODIUM 135 mmol/L (136-145); TCO2 25 mmol/L (25-35); TOTAL BILIRUBIN 0.21 mg/dL (0.20-1.00); TOTAL PROTEIN 7.1 g/dL (6.3-8.3)
--- NOTE | 2016-11-03 07:25 | PROGRESS NOTE ---
DATE: 11/03/2016 SUBJECTIVE: Ms. Vincent is doing fair. The patient does have chest congestion, cough, shortness of breath with minimal exertion. The patient claims she does have chills, and other times she does have some sweating. No nausea or vomiting. No diarrhea, blood, or mucus in the stool. OBJECTIVE: Vital Signs: Noted. Neck: Supple. No JVD. Lungs: Bilateral air entry present. Bilateral expiratory wheezing. CVS: S1 and S2 heard. Abdomen: Soft, nontender. Bowel sounds present. CLIENT SERVICE COORDINATOR: Alert, awake, able to move all 4 limbs. ASSESSMENT: 1. Acute exacerbation of chronic obstructive pulmonary disease. 2. Hypertension. 3. Chronic low back pain. 4. Hyperlipidemia. 5. Gastritis. LABORATORY DATA: Patient's lab data done this morning reviewed. Hemoglobin 11.2, hematocrit 35.2, platelet count 176,000. Electrolytes: Potassium was 5, creatinine 1.1. The rest fairly within acceptable range. PLAN: Overall, the patient is doing fair. Will continue current treatment. The patient is still waiting for telemetry bed. She is still in the ER. Will continue current treatment and close observation. cc: Eddie Elise MD
[2016-11-03] MEDS: COREG PO SCH ×2 (08:44→20:18)
[2016-11-03] MEDS: ADVAIR 250/50 DISKUS INH SCH ×2 (08:45→19:51)
[2016-11-03] MEDS: PRINIVIL PO SCH ×2 (09:00→20:18)
[2016-11-03] MEDS: SOLU-MEDROL IV SCH ×2 (09:01→20:18)
[2016-11-03] MEDS: MORPHINE IV PRN ×3 (09:10→20:18)
[2016-11-03] MEDS: SINGULAIR PO SCH (09:40)
[2016-11-03] MEDS: EFFEXOR PO SCH ×2 (09:45→20:18)
[2016-11-03] MEDS: MUCOMYST 20% INH SCH (19:31)
[2016-11-03] MEDS: LEVAQUIN 500 MG/D5W 500 MG/100 ML IVPB IV SCH (20:17)
[2016-11-03] MEDS: LOVENOX SUBQ SCH (20:18)
[2016-11-04] MEDS: DUONEB (A & A) INH SCH ×5 (03:50→22:57)
[2016-11-04] MEDS: PRILOSEC PO SCH ×2 (05:45→08:11)
[2016-11-04 06:47] LABS: HEMATOCRIT 31.9 % (37.0-47.0); HEMOGLOBIN 10.1 g/dL (12.0-16.0); LYMPH# 0.67 X1000 (1.2-3.4); LYMPH% 9.8 % (20.5-51.1); MANUAL DIFF NEEDED? YES; MCH 31.6 PG (27-31); MCHC 31.7 g/dL (33-37); MCV 99.7 FL (81-99); MONO# 0.21 X1000 (0.11-0.59); MONO% 3.1 % (1.7-9.3); MPV 9.3 FL (7.4-10.4); NEUT% 87.1 % (42.2-75.2); PLT 172 X1000 (130-400)
[2016-11-04 07:10] LABS: LYMPHS 12 % (21-51)
[2016-11-04 07:17] LABS: AGAP 14; ALBUMIN 3.6 g/dL (3.5-5.0); ALKALINE PHOSPHATASE 79 U/L (32-104); BUN 32 mg/dL (8-22); CHLORIDE 89 mmol/L (98-107); COSMO 271; GOT 8 U/L (10-30); GPT < 5 U/L (10-36); POTASSIUM 5.6 mmol/L (3.5-5.1); SODIUM 131 mmol/L (136-145); TCO2 28 mmol/L (25-35); TOTAL BILIRUBIN < 0.10 mg/dL (0.20-1.00); TOTAL PROTEIN 6.6 g/dL (6.3-8.3)
--- NOTE | 2016-11-04 07:27 | PROGRESS NOTE ---
DATE: 11/04/2016 SUBJECTIVELY: Ms. Vincent is doing fair. She denied any fever or chills. Her shortness of breath is getting better. She does have mild cough. At times wheezing. Complaining of epigastric discomfort and fullness after she eats. No diarrhea, blood or mucus in the stool. No typical chest pain or palpitations. OBJECTIVE: Vital Signs: Noted. Neck: Supple. No JVD. Lungs: Bilateral occasional wheezing. CVS: S1 and S2 heard. Abdomen: Soft, globular. Mild epigastric tenderness. No guarding or rigidity. Extremities: No cyanosis, clubbing. No acute DVT. SPORTS WRITER: Alert, awake. Able to move all 4 limbs. CONSIDERATIONS: 1. Chronic obstructive pulmonary disease exacerbation. I am going to repeat chest x-ray. 2. Epigastric pain most likely due to gastritis. I did consult. Dr. Max. 3. Hypertension. 4. Her electrolytes done yesterday BUN was 19, creatinine 1.1. Potassium was 5. I am going to check electrolytes again today. 5. Chronic low back pain. 6. Gastritis. 7. Situational depression. PLAN: Labs and medication noted. Considering her hyperkalemia, I am going to stop her lisinopril. We will continue the rest of her medicine and close observation. Overall plan discussed with the patient and she is in agreement. cc: Eddie Elise MD
--- NOTE | 2016-11-04 08:03 | Diag Imaging Result Doc PS360 ---
EXAM: CHEST-2 VIEWS HISTORY: hypoxia TECHNIQUE: COMPARISON: 11/02/2016 FINDINGS: The lungs are hyper expanded. The heart is not enlarged. The vessels are not distended. There are no infiltrates. No pleural effusions. IMPRESSION: Stable chest Electronically signed by Kevin Rojas 11/04/2016 8:00 AM
[2016-11-04] MEDS: ADVAIR 250/50 DISKUS INH SCH ×2 (08:35→19:48)
[2016-11-04] MEDS: MUCOMYST 20% INH SCH ×2 (08:35→19:48)
[2016-11-04] MEDS: NORCO-5 PO PRN ×2 (10:54→20:27)
[2016-11-04] MEDS: SINGULAIR PO SCH (10:54)
[2016-11-04] MEDS: EFFEXOR PO SCH ×2 (10:54→20:27)
[2016-11-04] MEDS: COREG PO SCH ×2 (10:54→20:27)
[2016-11-04] MEDS: PREDNISONE PO SCH (10:59)
[2016-11-04] MEDS: NORVASC PO SCH (10:59)
--- NOTE | 2016-11-04 15:39 | CONSULTATION ---
DATE OF CONSULTATION: 11/04/2016 REASON FOR CONSULTATION: Evaluation of this patient with abdominal pain and constipation. HISTORY OF PRESENT ILLNESS: This is a 71-year-old lady who was admitted by Dr. Elise for acute exacerbation of COPD. She has chronic respiratory failure. She was admitted on 11/02/2016 and she is feeling better. In the meantime, she complained of epigastric pain after eating and she also has significant constipation. She says that she has to take some laxatives for getting a good bowel movement. She was seen by me on 06/27/2013. At that time the patient had undergone a screening colonoscopy, the colon was negative. I have not done an esophagogastroduodenoscopy for her. PAST MEDICAL HISTORY: 1. Chronic obstructive pulmonary disease. 2. Hypertension. 3. Chronic kidney disease. 4. Chronic low back pain. 5. History of gastritis. 6. Fibromyalgia. 7. Hyperlipidemia. 8. Depression. 9. Migraine. 10. Peripheral neuropathy. SOCIAL HISTORY: She does not smoke. Denies any alcohol or substance abuse. She is single. REVIEW OF SYSTEMS: Apart from the complaints in the history of present illness, she does not have any problems especially there is no nausea or vomiting. She does not have any significant heartburn at this point. FAMILY HISTORY: Mother had dementia. There is history of diabetes mellitus in the family and hypertension in the family. One of the brothers from brain cancer. ALLERGIES: She is allergic to Rocephin. PHYSICAL EXAMINATION: General: The patient is alert, oriented x3. Vital Signs: The temperature is 98.4 degrees, pulse rate is 77, respiratory rate is 18, blood pressure is 149/80. General Appearance: She does not seem to be in any acute distress. Skin: Warm and dry. HEENT: Mucous membranes are moist. Neck: Supple. There is no thyromegaly. Cardiac: Both heart sounds are heard. Rhythm is regular. No murmur. Lungs: Clear to percussion and auscultation except in the base there is there are some crackles. I do not hear any wheezing. Abdomen: Slightly tender in the epigastric area. No masses felt. Bowel sounds are heard. Extremities: Free of any edema. LABORATORY DATA: The WBC count is 6.85, hemoglobin 11.1, hematocrit 31.9, the platelet count is 172,000. ProTime is 10.5, INR is 1. Sodium 131, potassium 5.6, chloride 89, CO2 is 28, BUN is 32, creatinine is 1.4. The blood glucose is 129. Total bilirubin is less than 0.1. AST is 8, ALT is less than 5, alkaline phosphatase is 79. Albumin is 3.6, total protein is 6.6. IMPRESSION: 1. Epigastric pain. 2. Constipation. RECOMMENDATION: She is getting better with her chronic obstructive pulmonary disease at this point. I have discussed the case with her as well as with Dr. Elise, and we concluded that she could go home and then I will see her in the office as an outpatient and do an endoscopy for her. cc: Eddie Elise MD
[2016-11-04] MEDS ORDERED: KAYEXALATE PO ONE (19:26)
[2016-11-04] MEDS: LOVENOX SUBQ SCH (20:26)
[2016-11-04] MEDS: LEVAQUIN 500 MG/D5W 500 MG/100 ML IVPB IV SCH (20:28)
[2016-11-05] MEDS: DUONEB (A & A) INH SCH ×6 (03:55→23:02)
[2016-11-05] MEDS: PRILOSEC PO SCH (06:43)
[2016-11-05] MEDS: MUCOMYST 20% INH SCH ×2 (07:26→19:02)
[2016-11-05] MEDS: ADVAIR 250/50 DISKUS INH SCH ×2 (07:26→19:01)
[2016-11-05 08:06] LABS: AGAP 10; ALBUMIN 3.9 g/dL (3.5-5.0); ALKALINE PHOSPHATASE 73 U/L (32-104); BUN 36 mg/dL (8-22); CALCIUM 8.9 mg/dL (8.8-10.2); CHLORIDE 95 mmol/L (98-107); COSMO 278; GOT 11 U/L (10-30); GPT 6 U/L (10-36); SODIUM 135 mmol/L (136-145); TCO2 30 mmol/L (25-35); TOTAL BILIRUBIN < 0.10 mg/dL (0.20-1.00)
[2016-11-05] MEDS: PREDNISONE PO SCH (08:41)
[2016-11-05] MEDS: NORVASC PO SCH (08:42)
[2016-11-05] MEDS: COREG PO SCH ×2 (08:42→22:01)
[2016-11-05] MEDS: SINGULAIR PO SCH (08:42)
[2016-11-05] MEDS: EFFEXOR PO SCH ×2 (08:42→22:02)
[2016-11-05] MEDS: NORCO-5 PO PRN ×2 (08:51→19:54)
--- NOTE | 2016-11-05 09:05 | PROGRESS NOTE ---
DATE: 11/05/2016 SUBJECTIVE: Ms. Vincent is doing better. She still has cough, chest congestion, mild shortness of breath. Complaining of epigastric discomfort. No nausea or vomiting. The patient did have some diarrhea secondary to Kayexalate. No dysuria or hematuria. OBJECTIVE: Vital Signs: Noted. Neck: Supple. No JVD. Lungs: Bilateral good air entry present. Occasional wheezing. Cardiovascular: S1 and S2 heard. Abdomen: Soft, globular. Bowel sounds present. Central Nervous System: Alert, awake, able to move all 4 limbs. CONSIDERATION: Hyperkalemia, improved. Potassium done today was 4. Her hyperkalemia most likely due to lisinopril, which I discontinued. The patient does have gastritis. I am going to add Carafate. Her other problems include hypertension, COPD exacerbation. Her labs and medication noted. I am going to watch her today. If clinical conditions permit, we will discharge her tomorrow. Overall plan discussed with the patient. She is in agreement. cc: Eddie Elise MD
[2016-11-05] MEDS: CARAFATE LIQUID PO SCH ×2 (13:05→22:00)
[2016-11-05] MEDS: LOVENOX SUBQ SCH (22:04)
[2016-11-05] MEDS: LEVAQUIN 500 MG/D5W 500 MG/100 ML IVPB IV SCH (22:05)
[2016-11-06] MEDS: CARAFATE LIQUID PO SCH ×4 (02:49→21:28)
[2016-11-06] MEDS: DUONEB (A & A) INH SCH ×6 (06:03→23:16)
[2016-11-06] MEDS: PRILOSEC PO SCH (06:30)
[2016-11-06] MEDS: ADVAIR 250/50 DISKUS INH SCH ×2 (07:46→19:54)
[2016-11-06] MEDS: MUCOMYST 20% INH SCH ×2 (07:46→19:53)
[2016-11-06] MEDS: PREDNISONE PO SCH (08:27)
[2016-11-06] MEDS: SINGULAIR PO SCH (08:27)
[2016-11-06] MEDS: COREG PO SCH ×2 (08:27→21:28)
[2016-11-06] MEDS: EFFEXOR PO SCH ×2 (08:28→21:28)
[2016-11-06] MEDS: NORVASC PO SCH (08:28)
[2016-11-06] MEDS: NORCO-5 PO PRN ×3 (08:32→23:38)
--- NOTE | 2016-11-06 10:18 | PROGRESS NOTE ---
DATE: 11/06/2016 SUBJECTIVE: Patient has some coughing and wheezing. No other specific complaints. OBJECTIVE: Vital Signs: Afebrile. Pulse 88, respirations 20, blood pressure 151/78, O2 saturation on 2 L 98 to 99%. She is on home oxygen at home. CV: RRR. Lungs: Moderate wheezes bilaterally. Abdomen: Soft, nontender, nondistended. Extremities: No calf tenderness, cords, or edema. LABS: No new labs for today ordered. ASSESSMENT: 1. Hyperkalemia, resolved. Possibly secondary to CHERRY inhibitor. Now off of that medication. 2. Chronic obstructive pulmonary disease exacerbation. 3. Hypertension. 4. Epigastric abdominal pain. Seems improved with PPI and Carafate. PLAN: Will take her off her oral steroids of prednisone in place her on IV Solu-Medrol. Continue DuoNeb and Advair. Continue blood pressure management with Norvasc addition now that she is off the CHERRY inhibitor and continue her home Coreg. We are not going to send her home today due to the wheezing. Hopefully the Solu-Medrol will help and she will be able to go home soon. cc: MD Eddie Bull MD
[2016-11-06] MEDS: SOLU-MEDROL IV SCH ×2 (10:57→17:14)
[2016-11-06] MEDS: LOVENOX SUBQ SCH (21:28)
[2016-11-06] MEDS: LEVAQUIN 500 MG/D5W 500 MG/100 ML IVPB IV SCH (21:29)
[2016-11-07] MEDS: CARAFATE LIQUID PO SCH ×3 (02:42→14:13)
[2016-11-07] MEDS: SOLU-MEDROL IV SCH (02:42)
[2016-11-07] MEDS: DUONEB (A & A) INH SCH ×4 (03:28→15:24)
[2016-11-07 05:14] LABS: ALLEN TEST YES; BE 7.5 mmoll (-3.0-3.0); BLOOD TYPE ARTERIAL; DRAW SITE R RADIAL; METHB 0.8 % (0.0-1.5); O2(CT) 19.3 mL/dL (15.0-23.0); PO2(98.6) 101 mmHg (60-100); SAMPLE BLOOD; SAO2 98.6 % (95.0-100.0); THB 14.2 g/dL (11.5-17.4)
[2016-11-07 05:17] LABS: MODALITY CANNULA; PCO2(98.6) 55 mmHg (35-45)
[2016-11-07] MEDS: PRILOSEC PO SCH (06:55)
[2016-11-07 07:00] LABS: POTASSIUM 4.3 mmol/L (3.5-5.1)
--- NOTE | 2016-11-07 07:34 | DISCHARGE SUMMARY ---
ADMISSION DATE: 11/04/2016 DISCHARGE DATE: 11/07/2016 FINAL DISCHARGE DIAGNOSES: 1. Acute exacerbation of chronic obstructive pulmonary disease and bronchitis. 2. Chronic respiratory failure. 3. Hypertension. 4. Low back pain. 5. Gastritis. 6. Reflux disease. 7. Depression. 8. Fibromyalgia. 9. Peripheral neuropathy. HISTORY OF PRESENT ILLNESS: Ms. Vincent is a 71-year-old white female patient admitted with increasing cough, chest congestion, shortness of breath, decreased exercise tolerance not responding to her outpatient treatment. The patient came to the emergency room, evaluated by ER physician. The patient was given nebulizer treatment and IV steroid. The patient still had diffuse wheezing and we decided to admit the patient as an inpatient. HOSPITAL COURSE: Patient was treated with IV steroid, IV antibiotics, pulmonary toilet. The patient's clinical condition gradually improved. The patient had abdominal pain. I started her on Carafate. The patient is on proton pump inhibitor. Gastrology consult obtained. Dr. Max evaluated the patient and he is going to see her as an outpatient. The patient is feeling better. Shortness of breath improved. Oral intake is good and I am going to discharge patient home today on tapering dose of steroid. Continue home oxygen, nebulizer treatment. Follow up with me in 1 week. Overall discharge plan discussed at length with the patient and she is in agreement. I am going to offer her home health. PHYSICAL EXAMINATION: Vital signs: Noted. Neck: Is supple. No JVD. Lungs: Bilateral good air entry present. CVS: S1 and S2 heard. Abdomen: Soft, nontender. Bowel sounds present. 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 Able to move all 4 limbs. LAB DATA: Revealed last hemoglobin 10.1, hematocrit 31.9. WBC count 6.85, platelet 172,000. Blood gas done today, pH 7.4, pCO2 of 55, pO2 101. This was done 3 L via nasal cannula. Electrolytes fairly benign. BUN 25, creatinine 1.2. Overall, patient received maximum benefit of hospitalization. Her chest x-ray was stable and we will discharge patient home. Discharge plan discussed at length with the patient and she is in agreement. cc: Eddie Elise MD
[2016-11-07] MEDS: MUCOMYST 20% INH SCH (07:42)
[2016-11-07] MEDS: ADVAIR 250/50 DISKUS INH SCH (07:42)
[2016-11-07] MEDS: NORCO-5 PO PRN ×2 (08:58→14:12)
[2016-11-07] MEDS: COREG PO SCH (08:58)
[2016-11-07] MEDS: EFFEXOR PO SCH (08:58)
[2016-11-07] MEDS: NORVASC PO SCH (08:58)
[2016-11-07] MEDS: SINGULAIR PO SCH (08:58)
[2016-11-07] MEDS ORDERED: NS 1,000 ML ONE (10:08)
[2016-11-07] MEDS ORDERED: PREDNISONE PO SCH (11:45)
[2016-11-07 14:46] VITALS: BP 154/79
== END 2016-11-07 18:00 | disposition home or self-care (01) ==
LOC: EDIPHOLD 14:02 → ED 14:02 → 3N 11-03 11:21
PROVIDERS: ADMIT Internal Medicine; ATTEND Internal Medicine